=== PATIENT | male | born 1965 | race Caucasian/White ===

== ENCOUNTER 2020-05-18 17:08 | Inpatient (IN) | payer MEDICARE, OTHER ==
[~2020-05-18] VITALS: Ht 177.8 cm; Wt 97.1 kg
[2020-05-18] MEDS ORDERED: ACETAMINOPHEN 325 MG TABLET PO PRN ×2 (18:30→18:45)
[2020-05-18] MEDS ORDERED: DEXTROSE 50%-WATER 25 GM/50 ML SYRINGE IVP PRN ×2 (18:30→18:45)
[2020-05-18] MEDS ORDERED: INSULIN LISPRO 100 UNITS/ML SQ PRN (18:30)
[2020-05-18] MEDS ORDERED: HYPROMELLOSE 0.5% 15 ML OPHTHALMIC SOLUTION OD PRN (18:45)
[2020-05-18 19:19] VITALS: BP 152/90
[2020-05-18] MEDS: INSULIN LISPRO 100 UNITS/ML SQ PRN ×2 (19:44→21:35)
[2020-05-18 20:58] LABS: GLUCOMETER DEV NAME(LOC) 2WR.1C; GLUCOSE,POINT OF CARE 193 MG/DL (70-110)
[2020-05-18 21:00] VITALS: BP 149/80
[2020-05-18] MEDS ORDERED: ERYTHROMYCIN 0.5% 3.5 GM TUBE OPHTHALMIC OINTMENT OD ONE (21:00)
[2020-05-18] MEDS ORDERED: ATORVASTATIN CALCIUM 40 MG TABLET PO SCH (21:00)
[2020-05-18] MEDS ORDERED: DOCUSATE SODIUM 100 MG CAPSULE PO SCH (21:00)
[2020-05-18] MEDS ORDERED: DOCUSATE SODIUM 100 MG/10 ML LIQUID UDCUP PO SCH (21:00)
[2020-05-18] MEDS ORDERED: HEPARIN SODIUM,PORCINE 5,000 UNITS/ML VIAL SQ SCH (21:00)
[2020-05-18] MEDS ORDERED: HYPROMELLOSE 0.5% 15 ML OPHTHALMIC SOLUTION OD SCH (21:00)
[2020-05-18] MEDS: ERYTHROMYCIN 0.5% 3.5 GM TUBE OPHTHALMIC OINTMENT OD SCH (21:24)
[2020-05-18] MEDS: ATORVASTATIN CALCIUM 40 MG TABLET PO SCH (21:24)
[2020-05-18] MEDS: NIFEdipine 30 MG ER TABLET PO SCH (21:24)
[2020-05-18] MEDS: SENNA 187 MG TABLET PO SCH (21:25)
[2020-05-18] MEDS: DOCUSATE SODIUM 100 MG CAPSULE PO SCH (21:25)
[2020-05-18] MEDS: LevETIRAcetam 250 MG TABLET PO SCH (21:25)
[2020-05-18] MEDS: HEPARIN SODIUM,PORCINE 5,000 UNITS/ML VIAL SQ SCH (21:25)
[2020-05-18 23:43] LABS: GLUCOMETER DEV NAME(LOC) 2WR.2B; GLUCOSE,POINT OF CARE 142 MG/DL (70-110)
[2020-05-19] VITALS: BP 160/89
[2020-05-19] MEDS: FAMOTIDINE 20 MG TABLET PO SCH (05:36)
[2020-05-19] MEDS ORDERED: ASPIRIN 81 MG CHEWABLE TABLET PO SCH ×2 (07:30→09:00)
[2020-05-19 08:00] VITALS: BP 148/89
[2020-05-19 08:17] LABS: EOSINOPHILS % (AUTO) 2.1 % (1.0-6.0); HEMATOCRIT 37.8 % (41-53); HEMOGLOBIN 12.6 g/dL (13.5-17.5); LYMPHOCYTES # (AUTO) 1.2 K/uL (1.0-4.8); LYMPHOCYTES % (AUTO) 25.2 % (22.0-44.0); MEAN CORPUSCULAR HEMOGLOBIN 27.5 pg (26.0-34.0); MEAN CORPUSCULAR HGB CONC 33.3 G/dL (31.0-37.0); MEAN CORPUSCULAR VOLUME 83 fL (80-100); MONOCYTES # (AUTO) 0.3 K/uL (0.1-1.0); MONOCYTES % (AUTO) 7.1 % (2.0-9.0); NEUTROPHILS # (AUTO) 3.2 K/uL (1.8-7.7); NEUTROPHILS % (AUTO) 64.6 % (40.0-70.0); PLATELET COUNT (AUTO) 318 K/uL (150-450); RED BLOOD CELL COUNT(AUTO) 4.57 MIL/uL (4.50-5.90); RED CELL DISTRIBUTION WIDTH 14.8 % (11.5-14.5)
[2020-05-19 08:32] LABS: ALANINE AMINOTRANSFERASE 22 U/L (12-78); ALBUMIN 3.7 g/dL (3.4-5.0); ALKALINE PHOSPHATASE 66 U/L (46-116); ANION GAP 8 mmol/L (8-16); ASPARTATE AMINOTRANSFERASE 15 U/L (15-37); BILIRUBIN,TOTAL 0.5 mg/dL (0.1-1.0); CALCIUM, TOTAL 8.9 mg/dL (8.8-10.5); CARBON DIOXIDE 32 mmol/L (22-29); CHLORIDE 104 mmol/L (98-107); CREATININE 1.12 mg/dL (0.60-1.30); GLOMERULAR FILTR. RATE CALC > 60 mL/min (>60); GLUCOSE,RANDOM 153 mg/dL (70-110); POTASSIUM 3.5 mmol/L (3.5-5.1); SODIUM SERUM 144 mmol/L (136-145); TOTAL PROTEIN, SERUM 7.3 g/dL (6.4-8.2); UREA NITROGEN, BLOOD 22 mg/dL (7-18)
[2020-05-19] MEDS: ISOSORBIDE MONONITRATE 60 MG ER TABLET PO SCH (08:50)
[2020-05-19] MEDS: ERYTHROMYCIN 0.5% 3.5 GM TUBE OPHTHALMIC OINTMENT OD SCH ×4 (08:50→20:37)
[2020-05-19] MEDS: LevETIRAcetam 250 MG TABLET PO SCH ×2 (08:51→20:36)
[2020-05-19] MEDS: NIFEdipine 30 MG ER TABLET PO SCH ×3 (08:51→20:36)
[2020-05-19] MEDS: POTASSIUM CHLORIDE 20 MEQ ER TABLET PO SCH (08:51)
[2020-05-19] MEDS: LISINOPRIL 20 MG TABLET PO SCH (08:51)
[2020-05-19] MEDS: HEPARIN SODIUM,PORCINE 5,000 UNITS/ML VIAL SQ SCH ×2 (08:51→20:36)
[2020-05-19] MEDS: DOCUSATE SODIUM 100 MG CAPSULE PO SCH ×2 (08:54→20:37)
[2020-05-19] MEDS ORDERED: ISOSORBIDE MONONITRATE 60 MG ER TABLET PO SCH (09:00)
[2020-05-19] MEDS ORDERED: FAMOTIDINE 20 MG TABLET PO SCH (09:00)
[2020-05-19] MEDS: INSULIN LISPRO 100 UNITS/ML SQ PRN ×4 (09:21→20:38)
[2020-05-19 12:21] LABS: GLUCOMETER DEV NAME(LOC) 2WR.2B; GLUCOSE,POINT OF CARE 160 MG/DL (70-110)
[2020-05-19 15:16] LABS: GLUCOMETER DEV NAME(LOC) 2WR.1C; GLUCOSE,POINT OF CARE 151 MG/DL (70-110)
[2020-05-19 16:04] VITALS: BP 139/97
[2020-05-19 18:52] LABS: GLUCOMETER DEV NAME(LOC) 2WR.2B; GLUCOSE,POINT OF CARE 172 MG/DL (70-110)
[2020-05-19 19:33] LABS: APPEARANCE,URINE CLEAR (CLEAR); BILIRUBIN,URINE NEGATIVE (NEGATIVE); GLUCOSE, URINE (UA) NEGATIVE (NEGATIVE); KETONES,URINE NEGATIVE (NEGATIVE); LEUKOCYTE ESTERASE ,URINE NEGATIVE (NEGATIVE); NITRATE,URINE NEGATIVE (NEGATIVE); OCCULT BLOOD,URINE NEGATIVE (NEGATIVE); PH,URINE 6.5 (5.0-8.0); PROTEIN,URINE SEE CONFIRM (NEGATIVE)
[2020-05-19 20:05] LABS: SULFOSALICYLIC ACID,URINE 3+ (Negative)
[2020-05-19 20:07] LABS: BACTERIA,URINE None Seen /HPF (None Seen); RBC,URINE None Seen /HPF (0-2); WBC,URINE 0-2 /HPF (0-5)
[2020-05-19 20:08] LABS: SQUAMOUS EPITHELIAL CELL,UR Rare /LPF (None Seen)
[2020-05-19 20:28] VITALS: BP 131/89
[2020-05-19] MEDS: ATORVASTATIN CALCIUM 40 MG TABLET PO SCH (20:36)
[2020-05-19] MEDS: TAMSULOSIN HCL 0.4 MG CAPSULE PO SCH (20:36)
[2020-05-19] MEDS: SENNA 187 MG TABLET PO SCH (20:36)
[2020-05-19 22:23] LABS: GLUCOMETER DEV NAME(LOC) 2WR.2B; GLUCOSE,POINT OF CARE 170 MG/DL (70-110)
[2020-05-20] MEDS: MELATONIN 5 MG TABLET PO PRN ×2 (00:23→20:28)
[2020-05-20 00:56] VITALS: BP 127/82
[2020-05-20] MEDS: FAMOTIDINE 20 MG TABLET PO SCH (06:07)
[2020-05-20 07:00] VITALS: BP 159/91
[2020-05-20] MEDS: ERYTHROMYCIN 0.5% 3.5 GM TUBE OPHTHALMIC OINTMENT OD SCH ×4 (09:00→20:34)
[2020-05-20] MEDS ORDERED: MULTIVITAMINS WITH MINERALS, THERAPEUTIC TABLET PO SCH (09:00)
[2020-05-20] MEDS: DOCUSATE SODIUM 250 MG CAPSULE PO SCH ×2 (10:25→20:28)
[2020-05-20] MEDS: ISOSORBIDE MONONITRATE 60 MG ER TABLET PO SCH (10:25)
[2020-05-20] MEDS: LISINOPRIL 20 MG TABLET PO SCH (10:26)
[2020-05-20] MEDS: MULTIVITAMINS WITH MINERALS, THERAPEUTIC TABLET PO SCH (10:26)
[2020-05-20] MEDS: ASPIRIN 81 MG CHEWABLE TABLET PO SCH (10:26)
[2020-05-20] MEDS: LevETIRAcetam 250 MG TABLET PO SCH ×2 (10:26→20:28)
[2020-05-20] MEDS: HYPROMELLOSE 0.5% 15 ML OPHTHALMIC SOLUTION OD PRN ×2 (10:27→16:16)
[2020-05-20] MEDS: POTASSIUM CHLORIDE 20 MEQ ER TABLET PO SCH (10:27)
[2020-05-20] MEDS: NIFEdipine 30 MG ER TABLET PO SCH ×3 (10:27→20:28)
[2020-05-20 12:31] LABS: GLUCOMETER DEV NAME(LOC) 2WR.1C; GLUCOSE,POINT OF CARE 293 MG/DL (70-110)
[2020-05-20 12:31] LABS: GLUCOMETER DEV NAME(LOC) 2WR.1C; GLUCOSE,POINT OF CARE 134 MG/DL (70-110)
[2020-05-20] MEDS: INSULIN LISPRO 100 UNITS/ML SQ PRN ×2 (13:58→20:29)
[2020-05-20 15:50] VITALS: BP 123/77
[2020-05-20] MEDS: HEPARIN SODIUM,PORCINE 5,000 UNITS/ML VIAL SQ SCH ×2 (16:17→22:54)
[2020-05-20] MEDS: MetFORMIN HCL 500 MG TABLET PO SCH (17:19)
[2020-05-20 19:28] LABS: GLUCOMETER DEV NAME(LOC) 2WR.1C; GLUCOSE,POINT OF CARE 127 MG/DL (70-110)
[2020-05-20 20:25] VITALS: BP 123/81
[2020-05-20] MEDS: SENNA 187 MG TABLET PO SCH (20:28)
[2020-05-20] MEDS: ATORVASTATIN CALCIUM 40 MG TABLET PO SCH (20:28)
[2020-05-20] MEDS: TAMSULOSIN HCL 0.4 MG CAPSULE PO SCH (20:28)
[2020-05-20 21:36] LABS: GLUCOMETER DEV NAME(LOC) 2WR.1C; GLUCOSE,POINT OF CARE 186 MG/DL (70-110)
[2020-05-21 01:00] VITALS: BP 141/79
[2020-05-21] MEDS: FAMOTIDINE 20 MG TABLET PO SCH (05:55)
[2020-05-21 06:15] LABS: GLUCOMETER DEV NAME(LOC) 2WR.1C; GLUCOSE,POINT OF CARE 137 MG/DL (70-110)
[2020-05-21 08:15] VITALS: BP 187/112
[2020-05-21 09:18] VITALS: BP 126/75
[2020-05-21] MEDS: MetFORMIN HCL 500 MG TABLET PO SCH ×2 (09:18→17:30)
[2020-05-21] MEDS: DOCUSATE SODIUM 250 MG CAPSULE PO SCH ×2 (09:19→20:32)
[2020-05-21] MEDS: POTASSIUM CHLORIDE 20 MEQ ER TABLET PO SCH (09:19)
[2020-05-21] MEDS: MULTIVITAMINS WITH MINERALS, THERAPEUTIC TABLET PO SCH (09:19)
[2020-05-21] MEDS: ERYTHROMYCIN 0.5% 3.5 GM TUBE OPHTHALMIC OINTMENT OD SCH ×4 (09:19→20:32)
[2020-05-21] MEDS: ASPIRIN 81 MG CHEWABLE TABLET PO SCH (09:19)
[2020-05-21] MEDS: LISINOPRIL 20 MG TABLET PO SCH (09:19)
[2020-05-21] MEDS: HEPARIN SODIUM,PORCINE 5,000 UNITS/ML VIAL SQ SCH ×3 (09:19→22:50)
[2020-05-21] MEDS: ISOSORBIDE MONONITRATE 60 MG ER TABLET PO SCH (09:19)
[2020-05-21] MEDS: LevETIRAcetam 250 MG TABLET PO SCH ×2 (09:19→20:33)
[2020-05-21] MEDS: NIFEdipine 30 MG ER TABLET PO SCH ×3 (09:19→20:32)
[2020-05-21] MEDS: INSULIN LISPRO 100 UNITS/ML SQ PRN ×3 (12:30→20:49)
[2020-05-21 13:06] LABS: GLUCOMETER DEV NAME(LOC) 2WR.1C; GLUCOSE,POINT OF CARE 194 MG/DL (70-110)
[2020-05-21 16:23] VITALS: BP 120/78
[2020-05-21] MEDS: MELATONIN 5 MG TABLET PO PRN (20:32)
[2020-05-21] MEDS: SENNA 187 MG TABLET PO SCH (20:32)
[2020-05-21] MEDS: ATORVASTATIN CALCIUM 40 MG TABLET PO SCH (20:33)
[2020-05-21] MEDS: TAMSULOSIN HCL 0.4 MG CAPSULE PO SCH (20:33)
[2020-05-21 23:02] LABS: GLUCOMETER DEV NAME(LOC) 2WR.2B; GLUCOSE,POINT OF CARE 154 MG/DL (70-110)
[2020-05-22] VITALS: BP 146/76
[2020-05-22] MEDS: FAMOTIDINE 20 MG TABLET PO SCH (05:56)
[2020-05-22 06:32] LABS: GLUCOMETER DEV NAME(LOC) 2WR.1C; GLUCOSE,POINT OF CARE 172 MG/DL (70-110)
[2020-05-22 08:03] VITALS: BP_SYST 134; BP_SYST 161; BP_DIAS 83; BP_DIAS 93
[2020-05-22] MEDS: ISOSORBIDE MONONITRATE 60 MG ER TABLET PO SCH (08:04)
[2020-05-22] MEDS: DOCUSATE SODIUM 250 MG CAPSULE PO SCH ×2 (08:04→20:46)
[2020-05-22] MEDS: POTASSIUM CHLORIDE 20 MEQ ER TABLET PO SCH (08:04)
[2020-05-22] MEDS: HEPARIN SODIUM,PORCINE 5,000 UNITS/ML VIAL SQ SCH ×2 (08:04→15:45)
[2020-05-22] MEDS: NIFEdipine 30 MG ER TABLET PO SCH ×3 (08:04→20:46)
[2020-05-22] MEDS: LISINOPRIL 20 MG TABLET PO SCH (08:05)
[2020-05-22] MEDS: MULTIVITAMINS WITH MINERALS, THERAPEUTIC TABLET PO SCH (08:05)
[2020-05-22] MEDS: MetFORMIN HCL 500 MG TABLET PO SCH ×2 (08:05→17:32)
[2020-05-22] MEDS: ASPIRIN 81 MG CHEWABLE TABLET PO SCH (08:05)
[2020-05-22] MEDS: LevETIRAcetam 250 MG TABLET PO SCH ×2 (08:05→20:46)
[2020-05-22] MEDS: INSULIN LISPRO 100 UNITS/ML SQ PRN ×4 (08:10→21:03)
[2020-05-22] MEDS: ERYTHROMYCIN 0.5% 3.5 GM TUBE OPHTHALMIC OINTMENT OD SCH ×4 (09:22→20:46)
[2020-05-22 15:16] LABS: GLUCOMETER DEV NAME(LOC) 2WR.1C; GLUCOSE,POINT OF CARE 188 MG/DL (70-110)
[2020-05-22 16:09] VITALS: BP 136/91
[2020-05-22 18:01] LABS: GLUCOMETER DEV NAME(LOC) 2WR.1C; GLUCOSE,POINT OF CARE 145 MG/DL (70-110)
[2020-05-22] MEDS: TAMSULOSIN HCL 0.4 MG CAPSULE PO SCH (20:46)
[2020-05-22] MEDS: ATORVASTATIN CALCIUM 40 MG TABLET PO SCH (20:46)
[2020-05-22] MEDS: SENNA 187 MG TABLET PO SCH (20:46)
[2020-05-22] MEDS: MELATONIN 5 MG TABLET PO PRN (20:46)
[2020-05-22 21:26] LABS: GLUCOMETER DEV NAME(LOC) 2WR.2B; GLUCOSE,POINT OF CARE 170 MG/DL (70-110)
[2020-05-23 00:10] VITALS: BP_SYST 107; BP_SYST 153; BP_DIAS 69; BP_DIAS 94
[2020-05-23] MEDS: HEPARIN SODIUM,PORCINE 5,000 UNITS/ML VIAL SQ SCH ×4 (01:13→20:14)
[2020-05-23] MEDS: FAMOTIDINE 20 MG TABLET PO SCH (06:01)
[2020-05-23 06:14] LABS: GLUCOMETER DEV NAME(LOC) 2WR.1C; GLUCOSE,POINT OF CARE 147 MG/DL (70-110)
[2020-05-23] MEDS: DOCUSATE SODIUM 250 MG CAPSULE PO SCH ×2 (07:28→20:12)
[2020-05-23] MEDS: MetFORMIN HCL 500 MG TABLET PO SCH (07:28)
[2020-05-23] MEDS: ASPIRIN 81 MG CHEWABLE TABLET PO SCH (07:28)
[2020-05-23] MEDS: NIFEdipine 30 MG ER TABLET PO SCH ×3 (07:29→20:13)
[2020-05-23] MEDS: LevETIRAcetam 250 MG TABLET PO SCH ×2 (07:29→20:13)
[2020-05-23] MEDS: MULTIVITAMINS WITH MINERALS, THERAPEUTIC TABLET PO SCH (07:29)
[2020-05-23] MEDS: ISOSORBIDE MONONITRATE 60 MG ER TABLET PO SCH (07:29)
[2020-05-23] MEDS: LISINOPRIL 20 MG TABLET PO SCH (07:29)
[2020-05-23] MEDS: POTASSIUM CHLORIDE 20 MEQ ER TABLET PO SCH (07:29)
[2020-05-23] MEDS: ERYTHROMYCIN 0.5% 3.5 GM TUBE OPHTHALMIC OINTMENT OD SCH ×4 (07:33→20:12)
[2020-05-23] MEDS: INSULIN LISPRO 100 UNITS/ML SQ PRN ×3 (07:37→20:18)
[2020-05-23 08:00] VITALS: BP 154/93
[2020-05-23 14:00] LABS: GLUCOMETER DEV NAME(LOC) 2WR.2B; GLUCOSE,POINT OF CARE 236 MG/DL (70-110)
[2020-05-23 15:21] VITALS: BP 147/85
[2020-05-23] MEDS: HYPROMELLOSE 0.5% 15 ML OPHTHALMIC SOLUTION OD PRN (15:23)
[2020-05-23] MEDS: MetFORMIN HCL 850 MG TABLET PO SCH (17:45)
[2020-05-23 18:17] LABS: GLUCOMETER DEV NAME(LOC) 2WR.1C; GLUCOSE,POINT OF CARE 130 MG/DL (70-110)
[2020-05-23 20:07] VITALS: BP 127/96
[2020-05-23] MEDS: SENNA 187 MG TABLET PO SCH (20:12)
[2020-05-23] MEDS: TAMSULOSIN HCL 0.4 MG CAPSULE PO SCH (20:12)
[2020-05-23] MEDS: MELATONIN 5 MG TABLET PO PRN (20:12)
[2020-05-23] MEDS: ATORVASTATIN CALCIUM 40 MG TABLET PO SCH (20:13)
[2020-05-23 21:48] LABS: GLUCOMETER DEV NAME(LOC) 2WR.1C; GLUCOSE,POINT OF CARE 176 MG/DL (70-110)
[2020-05-24 00:02] VITALS: BP 123/74
[2020-05-24] MEDS: FAMOTIDINE 20 MG TABLET PO SCH (06:02)
[2020-05-24 06:16] LABS: GLUCOMETER DEV NAME(LOC) 2WR.2B; GLUCOSE,POINT OF CARE 139 MG/DL (70-110)
[2020-05-24 07:02] VITALS: BP 161/91
[2020-05-24] MEDS: MetFORMIN HCL 850 MG TABLET PO SCH ×2 (08:12→17:03)
[2020-05-24] MEDS: ASPIRIN 81 MG CHEWABLE TABLET PO SCH (08:12)
[2020-05-24] MEDS: ERYTHROMYCIN 0.5% 3.5 GM TUBE OPHTHALMIC OINTMENT OD SCH ×4 (08:12→20:15)
[2020-05-24] MEDS: LevETIRAcetam 250 MG TABLET PO SCH ×2 (08:13→20:16)
[2020-05-24] MEDS: POTASSIUM CHLORIDE 20 MEQ ER TABLET PO SCH (08:13)
[2020-05-24] MEDS: MULTIVITAMINS WITH MINERALS, THERAPEUTIC TABLET PO SCH (08:13)
[2020-05-24] MEDS: NIFEdipine 30 MG ER TABLET PO SCH ×3 (08:13→20:15)
[2020-05-24] MEDS: ISOSORBIDE MONONITRATE 60 MG ER TABLET PO SCH (08:13)
[2020-05-24] MEDS: DOCUSATE SODIUM 250 MG CAPSULE PO SCH ×2 (08:13→20:15)
[2020-05-24] MEDS: LISINOPRIL 20 MG TABLET PO SCH (08:13)
[2020-05-24] MEDS: HEPARIN SODIUM,PORCINE 5,000 UNITS/ML VIAL SQ SCH ×3 (08:14→20:16)
[2020-05-24 09:08] VITALS: BP 148/86
[2020-05-24] MEDS: AmLODIPine BESYLATE 5 MG TABLET PO SCH (12:30)
[2020-05-24] MEDS: INSULIN LISPRO 100 UNITS/ML SQ PRN ×2 (12:33→20:37)
[2020-05-24 14:14] LABS: GLUCOMETER DEV NAME(LOC) 2WR.2B; GLUCOSE,POINT OF CARE 220 MG/DL (70-110)
[2020-05-24 15:49] VITALS: BP 126/73
[2020-05-24] MEDS: HYPROMELLOSE 0.5% 15 ML OPHTHALMIC SOLUTION OD PRN (15:53)
[2020-05-24 18:35] LABS: GLUCOMETER DEV NAME(LOC) 2WR.2B; GLUCOSE,POINT OF CARE 126 MG/DL (70-110)
[2020-05-24 20:09] VITALS: BP 127/76
[2020-05-24] MEDS: MELATONIN 5 MG TABLET PO PRN (20:15)
[2020-05-24] MEDS: TAMSULOSIN HCL 0.4 MG CAPSULE PO SCH (20:15)
[2020-05-24] MEDS: ATORVASTATIN CALCIUM 40 MG TABLET PO SCH (20:16)
[2020-05-24] MEDS: SENNA 187 MG TABLET PO SCH (20:16)
[2020-05-24 23:08] LABS: GLUCOMETER DEV NAME(LOC) 2WR.1C; GLUCOSE,POINT OF CARE 145 MG/DL (70-110)
[2020-05-25 00:03] VITALS: BP 127/75
[2020-05-25] MEDS: FAMOTIDINE 20 MG TABLET PO SCH (05:54)
[2020-05-25 06:14] LABS: GLUCOMETER DEV NAME(LOC) 2WR.1C; GLUCOSE,POINT OF CARE 144 MG/DL (70-110)
[2020-05-25] MEDS: AmLODIPine BESYLATE 5 MG TABLET PO SCH (07:58)
[2020-05-25] MEDS: NIFEdipine 30 MG ER TABLET PO SCH ×3 (07:58→20:18)
[2020-05-25] MEDS: DOCUSATE SODIUM 250 MG CAPSULE PO SCH ×2 (07:58→20:18)
[2020-05-25] MEDS: MULTIVITAMINS WITH MINERALS, THERAPEUTIC TABLET PO SCH (07:58)
[2020-05-25] MEDS: MetFORMIN HCL 850 MG TABLET PO SCH (07:58)
[2020-05-25] MEDS: LevETIRAcetam 250 MG TABLET PO SCH ×2 (07:58→20:19)
[2020-05-25] MEDS: ASPIRIN 81 MG CHEWABLE TABLET PO SCH (07:58)
[2020-05-25] MEDS: ERYTHROMYCIN 0.5% 3.5 GM TUBE OPHTHALMIC OINTMENT OD SCH ×4 (07:59→20:20)
[2020-05-25] MEDS: ISOSORBIDE MONONITRATE 60 MG ER TABLET PO SCH (07:59)
[2020-05-25] MEDS: POTASSIUM CHLORIDE 20 MEQ ER TABLET PO SCH (07:59)
[2020-05-25] MEDS: LISINOPRIL 20 MG TABLET PO SCH (07:59)
[2020-05-25] MEDS: HEPARIN SODIUM,PORCINE 5,000 UNITS/ML VIAL SQ SCH ×3 (08:00→20:19)
[2020-05-25 08:01] VITALS: BP 155/85
[2020-05-25] MEDS: INSULIN LISPRO 100 UNITS/ML SQ PRN ×2 (08:02→20:50)
[2020-05-25 14:30] VITALS: BP 163/94
[2020-05-25 14:37] LABS: GLUCOMETER DEV NAME(LOC) 2WR.2B; GLUCOSE,POINT OF CARE 122 MG/DL (70-110)
[2020-05-25] MEDS: MetFORMIN HCL 500 MG TABLET PO SCH (17:34)
[2020-05-25 19:37] LABS: GLUCOMETER DEV NAME(LOC) 2WR.2B; GLUCOSE,POINT OF CARE 112 MG/DL (70-110)
[2020-05-25 20:15] VITALS: BP 155/93
[2020-05-25] MEDS: ATORVASTATIN CALCIUM 40 MG TABLET PO SCH (20:18)
[2020-05-25] MEDS: TAMSULOSIN HCL 0.4 MG CAPSULE PO SCH (20:18)
[2020-05-25] MEDS: SENNA 187 MG TABLET PO SCH (20:19)
[2020-05-25 20:25] LABS: GLUCOMETER DEV NAME(LOC) 2WR.2B; GLUCOSE,POINT OF CARE 150 MG/DL (70-110)
[2020-05-25] MEDS: MELATONIN 5 MG TABLET PO PRN (22:51)
[2020-05-26] VITALS: BP 148/95
[2020-05-26 06:21] LABS: GLUCOMETER DEV NAME(LOC) 2WR.1C; GLUCOSE,POINT OF CARE 140 MG/DL (70-110)
[2020-05-26 06:53] LABS: BASOPHILS % (AUTO) 0.6 % (0.0-2.0); EOSINOPHILS % (AUTO) 1.5 % (1.0-6.0); HEMATOCRIT 35.3 % (41-53); HEMOGLOBIN 11.8 g/dL (13.5-17.5); LYMPHOCYTES # (AUTO) 1.4 K/uL (1.0-4.8); LYMPHOCYTES % (AUTO) 15.5 % (22.0-44.0); MEAN CORPUSCULAR HGB CONC 33.4 G/dL (31.0-37.0); MEAN CORPUSCULAR VOLUME 84 fL (80-100); MONOCYTES # (AUTO) 0.5 K/uL (0.1-1.0); MONOCYTES % (AUTO) 5.6 % (2.0-9.0); NEUTROPHILS # (AUTO) 6.8 K/uL (1.8-7.7); NEUTROPHILS % (AUTO) 76.8 % (40.0-70.0); PLATELET COUNT (AUTO) 267 K/uL (150-450); RED BLOOD CELL COUNT(AUTO) 4.22 MIL/uL (4.50-5.90); RED CELL DISTRIBUTION WIDTH 15.1 % (11.5-14.5)
[2020-05-26] MEDS: FAMOTIDINE 20 MG TABLET PO SCH (07:03)
[2020-05-26 07:19] LABS: ANION GAP 7 mmol/L (8-16); CALCIUM, TOTAL 8.9 mg/dL (8.8-10.5); CARBON DIOXIDE 29 mmol/L (22-29); CHLORIDE 107 mmol/L (98-107); CREATININE 1.03 mg/dL (0.60-1.30); GLOMERULAR FILTR. RATE CALC > 60 mL/min (>60); GLUCOSE,RANDOM 143 mg/dL (70-110); SODIUM SERUM 143 mmol/L (136-145); UREA NITROGEN, BLOOD 35 mg/dL (7-18)
[2020-05-26] MEDS: ERYTHROMYCIN 0.5% 3.5 GM TUBE OPHTHALMIC OINTMENT OD SCH ×4 (07:51→20:48)
[2020-05-26] MEDS: ASPIRIN 81 MG CHEWABLE TABLET PO SCH (07:51)
[2020-05-26] MEDS: MetFORMIN HCL 500 MG TABLET PO SCH ×2 (07:51→17:32)
[2020-05-26] MEDS: POTASSIUM CHLORIDE 20 MEQ ER TABLET PO SCH (07:52)
[2020-05-26] MEDS: MULTIVITAMINS WITH MINERALS, THERAPEUTIC TABLET PO SCH (07:52)
[2020-05-26] MEDS: ISOSORBIDE MONONITRATE 60 MG ER TABLET PO SCH (07:52)
[2020-05-26] MEDS: NIFEdipine 30 MG ER TABLET PO SCH ×3 (07:52→20:48)
[2020-05-26] MEDS: AmLODIPine BESYLATE 5 MG TABLET PO SCH (07:52)
[2020-05-26] MEDS: LISINOPRIL 20 MG TABLET PO SCH (07:52)
[2020-05-26] MEDS: HEPARIN SODIUM,PORCINE 5,000 UNITS/ML VIAL SQ SCH ×3 (07:52→20:48)
[2020-05-26] MEDS: LevETIRAcetam 250 MG TABLET PO SCH ×2 (07:52→20:48)
[2020-05-26 08:00] VITALS: BP 138/90
[2020-05-26] MEDS: DOCUSATE SODIUM 250 MG CAPSULE PO SCH ×2 (08:04→20:50)
[2020-05-26] MEDS: INSULIN LISPRO 100 UNITS/ML SQ PRN (12:22)
[2020-05-26 12:45] LABS: GLUCOMETER DEV NAME(LOC) 2WR.1C; GLUCOSE,POINT OF CARE 162 MG/DL (70-110)
[2020-05-26 15:50] VITALS: BP 115/93
[2020-05-26 18:06] LABS: GLUCOMETER DEV NAME(LOC) 2WR.1C; GLUCOSE,POINT OF CARE 115 MG/DL (70-110)
[2020-05-26] MEDS: ATORVASTATIN CALCIUM 40 MG TABLET PO SCH (20:48)
[2020-05-26] MEDS: TAMSULOSIN HCL 0.4 MG CAPSULE PO SCH (20:48)
[2020-05-26] MEDS: SENNA 187 MG TABLET PO SCH (20:50)
[2020-05-26 21:54] LABS: GLUCOMETER DEV NAME(LOC) 2WR.2B; GLUCOSE,POINT OF CARE 140 MG/DL (70-110)
[2020-05-26] MEDS: MELATONIN 5 MG TABLET PO PRN (23:05)
[2020-05-26 23:16] VITALS: BP 124/76
[2020-05-27 06:02] LABS: GLUCOMETER DEV NAME(LOC) 2WR.1C; GLUCOSE,POINT OF CARE 124 MG/DL (70-110)
[2020-05-27] MEDS: FAMOTIDINE 20 MG TABLET PO SCH (06:02)
[2020-05-27] MEDS: ERYTHROMYCIN 0.5% 3.5 GM TUBE OPHTHALMIC OINTMENT OD SCH ×4 (08:42→21:06)
[2020-05-27] MEDS: MetFORMIN HCL 500 MG TABLET PO SCH ×2 (08:42→17:42)
[2020-05-27] MEDS: ASPIRIN 81 MG CHEWABLE TABLET PO SCH (08:43)
[2020-05-27] MEDS: ISOSORBIDE MONONITRATE 60 MG ER TABLET PO SCH (08:43)
[2020-05-27] MEDS: DOCUSATE SODIUM 250 MG CAPSULE PO SCH ×2 (08:43→21:06)
[2020-05-27] MEDS: LevETIRAcetam 250 MG TABLET PO SCH ×2 (08:44→21:05)
[2020-05-27] MEDS: POTASSIUM CHLORIDE 20 MEQ ER TABLET PO SCH (08:44)
[2020-05-27] MEDS: NIFEdipine 30 MG ER TABLET PO SCH ×3 (08:44→21:05)
[2020-05-27] MEDS: AmLODIPine BESYLATE 5 MG TABLET PO SCH (08:44)
[2020-05-27] MEDS: MULTIVITAMINS WITH MINERALS, THERAPEUTIC TABLET PO SCH (08:45)
[2020-05-27] MEDS: HEPARIN SODIUM,PORCINE 5,000 UNITS/ML VIAL SQ SCH ×3 (08:46→21:06)
[2020-05-27] MEDS: LISINOPRIL 20 MG TABLET PO SCH (08:46)
[2020-05-27] MEDS: INSULIN LISPRO 100 UNITS/ML SQ PRN ×2 (12:00→21:29)
[2020-05-27 13:49] LABS: GLUCOMETER DEV NAME(LOC) 2WR.2B; GLUCOSE,POINT OF CARE 234 MG/DL (70-110)
[2020-05-27 16:09] VITALS: BP 122/76
[2020-05-27 16:42] LABS: APPEARANCE,URINE CLEAR (CLEAR); BILIRUBIN,URINE NEGATIVE (NEGATIVE); GLUCOSE, URINE (UA) NEGATIVE (NEGATIVE); KETONES,URINE NEGATIVE (NEGATIVE); LEUKOCYTE ESTERASE ,URINE NEGATIVE (NEGATIVE); NITRATE,URINE NEGATIVE (NEGATIVE); OCCULT BLOOD,URINE NEGATIVE (NEGATIVE); PH,URINE 6.5 (5.0-8.0); PROTEIN,URINE SEE CONFIRM (NEGATIVE)
[2020-05-27 16:45] LABS: BACTERIA,URINE Rare /HPF (None Seen); RBC,URINE 0-2 /HPF (0-2); SQUAMOUS EPITHELIAL CELL,UR Rare /LPF (None Seen); SULFOSALICYLIC ACID,URINE 2+ (Negative); WBC,URINE 0-2 /HPF (0-5)
[2020-05-27 18:25] LABS: GLUCOMETER DEV NAME(LOC) 2WR.1C; GLUCOSE,POINT OF CARE 110 MG/DL (70-110)
[2020-05-27] MEDS: MELATONIN 5 MG TABLET PO PRN (21:06)
[2020-05-27] MEDS: SENNA 187 MG TABLET PO SCH (21:06)
[2020-05-27] MEDS: TAMSULOSIN HCL 0.4 MG CAPSULE PO SCH (21:06)
[2020-05-27] MEDS: ATORVASTATIN CALCIUM 40 MG TABLET PO SCH (21:06)
[2020-05-28 00:13] LABS: GLUCOMETER DEV NAME(LOC) 2WR.2B; GLUCOSE,POINT OF CARE 155 MG/DL (70-110)
[2020-05-28 01:15] VITALS: BP 148/85
[2020-05-28] MEDS: FAMOTIDINE 20 MG TABLET PO SCH (06:01)
[2020-05-28 08:00] VITALS: BP 143/85
[2020-05-28] MEDS: MetFORMIN HCL 500 MG TABLET PO SCH ×2 (08:02→16:52)
[2020-05-28] MEDS: ERYTHROMYCIN 0.5% 3.5 GM TUBE OPHTHALMIC OINTMENT OD SCH ×4 (08:03→20:11)
[2020-05-28] MEDS: ASPIRIN 81 MG CHEWABLE TABLET PO SCH (08:03)
[2020-05-28] MEDS: DOCUSATE SODIUM 250 MG CAPSULE PO SCH ×2 (08:03→20:10)
[2020-05-28] MEDS: POTASSIUM CHLORIDE 20 MEQ ER TABLET PO SCH (08:04)
[2020-05-28] MEDS: AmLODIPine BESYLATE 5 MG TABLET PO SCH (08:04)
[2020-05-28] MEDS: LISINOPRIL 20 MG TABLET PO SCH (08:04)
[2020-05-28] MEDS: MULTIVITAMINS WITH MINERALS, THERAPEUTIC TABLET PO SCH (08:04)
[2020-05-28] MEDS: LevETIRAcetam 250 MG TABLET PO SCH ×2 (08:04→20:10)
[2020-05-28] MEDS: NIFEdipine 30 MG ER TABLET PO SCH ×3 (08:04→20:09)
[2020-05-28] MEDS: ISOSORBIDE MONONITRATE 60 MG ER TABLET PO SCH (08:04)
[2020-05-28] MEDS: HEPARIN SODIUM,PORCINE 5,000 UNITS/ML VIAL SQ SCH ×3 (08:05→20:09)
[2020-05-28] MEDS: INSULIN LISPRO 100 UNITS/ML SQ PRN ×2 (09:24→12:18)
[2020-05-28 13:59] LABS: GLUCOMETER DEV NAME(LOC) 2WR.2B; GLUCOSE,POINT OF CARE 166 MG/DL (70-110)
[2020-05-28 15:33] VITALS: BP 133/68
[2020-05-28 17:44] LABS: GLUCOMETER DEV NAME(LOC) 2WR.1C; GLUCOSE,POINT OF CARE 124 MG/DL (70-110)
[2020-05-28 17:57] LABS: GLUCOMETER DEV NAME(LOC) 2WR.2B; GLUCOSE,POINT OF CARE 93 MG/DL (70-110)
[2020-05-28 20:00] VITALS: BP 124/90
[2020-05-28] MEDS: TAMSULOSIN HCL 0.4 MG CAPSULE PO SCH (20:10)
[2020-05-28] MEDS: ATORVASTATIN CALCIUM 40 MG TABLET PO SCH (20:10)
[2020-05-28] MEDS: SENNA 187 MG TABLET PO SCH (20:10)
[2020-05-28] MEDS: HYPROMELLOSE 0.5% 15 ML OPHTHALMIC SOLUTION OD PRN (20:11)
[2020-05-28 21:07] LABS: GLUCOMETER DEV NAME(LOC) 2WR.2B; GLUCOSE,POINT OF CARE 125 MG/DL (70-110)
[2020-05-28] MEDS: MELATONIN 5 MG TABLET PO PRN (23:14)
[2020-05-29] VITALS: BP 137/83
[2020-05-29] MEDS: FAMOTIDINE 20 MG TABLET PO SCH (05:45)
[2020-05-29 06:17] LABS: GLUCOMETER DEV NAME(LOC) 2WR.2B; GLUCOSE,POINT OF CARE 121 MG/DL (70-110)
[2020-05-29 08:00] VITALS: BP 152/94
[2020-05-29] MEDS: MetFORMIN HCL 500 MG TABLET PO SCH ×2 (08:39→17:52)
[2020-05-29] MEDS: ERYTHROMYCIN 0.5% 3.5 GM TUBE OPHTHALMIC OINTMENT OD SCH ×4 (08:40→20:57)
[2020-05-29] MEDS: AmLODIPine BESYLATE 5 MG TABLET PO SCH (08:40)
[2020-05-29] MEDS: DOCUSATE SODIUM 250 MG CAPSULE PO SCH ×2 (08:40→20:55)
[2020-05-29] MEDS: ISOSORBIDE MONONITRATE 60 MG ER TABLET PO SCH (08:40)
[2020-05-29] MEDS: ASPIRIN 81 MG CHEWABLE TABLET PO SCH (08:40)
[2020-05-29] MEDS: POTASSIUM CHLORIDE 20 MEQ ER TABLET PO SCH (08:40)
[2020-05-29] MEDS: MULTIVITAMINS WITH MINERALS, THERAPEUTIC TABLET PO SCH (08:41)
[2020-05-29] MEDS: NIFEdipine 30 MG ER TABLET PO SCH ×3 (08:41→20:55)
[2020-05-29] MEDS: LISINOPRIL 20 MG TABLET PO SCH (08:41)
[2020-05-29] MEDS: HEPARIN SODIUM,PORCINE 5,000 UNITS/ML VIAL SQ SCH ×3 (08:41→20:55)
[2020-05-29] MEDS: LevETIRAcetam 250 MG TABLET PO SCH ×2 (09:04→20:56)
[2020-05-29] MEDS: INSULIN LISPRO 100 UNITS/ML SQ PRN ×2 (09:23→12:25)
[2020-05-29 09:30] VITALS: BP 128/94
[2020-05-29 10:15] VITALS: BP 138/92
[2020-05-29 12:06] LABS: GLUCOMETER DEV NAME(LOC) 2WR.1C; GLUCOSE,POINT OF CARE 196 MG/DL (70-110)
[2020-05-29 15:35] VITALS: BP 122/82
[2020-05-29 18:55] LABS: GLUCOMETER DEV NAME(LOC) 2WR.1C; GLUCOSE,POINT OF CARE 98 MG/DL (70-110)
[2020-05-29 20:51] VITALS: BP 131/92
[2020-05-29] MEDS: ATORVASTATIN CALCIUM 40 MG TABLET PO SCH (20:54)
[2020-05-29] MEDS: SENNA 187 MG TABLET PO SCH (20:55)
[2020-05-29] MEDS: TAMSULOSIN HCL 0.4 MG CAPSULE PO SCH (20:55)
[2020-05-29 22:09] LABS: GLUCOMETER DEV NAME(LOC) 2WR.2B; GLUCOSE,POINT OF CARE 126 MG/DL (70-110)
[2020-05-30 01:32] VITALS: BP 145/80
[2020-05-30] MEDS: FAMOTIDINE 20 MG TABLET PO SCH (05:43)
[2020-05-30 06:01] LABS: GLUCOMETER DEV NAME(LOC) 2WR.1C; GLUCOSE,POINT OF CARE 143 MG/DL (70-110)
[2020-05-30] MEDS: DOCUSATE SODIUM 250 MG CAPSULE PO SCH ×2 (07:47→21:05)
[2020-05-30] MEDS: AmLODIPine BESYLATE 5 MG TABLET PO SCH (07:47)
[2020-05-30] MEDS: NIFEdipine 30 MG ER TABLET PO SCH ×3 (07:47→21:05)
[2020-05-30] MEDS: MetFORMIN HCL 500 MG TABLET PO SCH ×2 (07:47→17:20)
[2020-05-30] MEDS: LISINOPRIL 20 MG TABLET PO SCH (07:47)
[2020-05-30] MEDS: POTASSIUM CHLORIDE 20 MEQ ER TABLET PO SCH (07:47)
[2020-05-30] MEDS: MULTIVITAMINS WITH MINERALS, THERAPEUTIC TABLET PO SCH (07:47)
[2020-05-30] MEDS: ISOSORBIDE MONONITRATE 60 MG ER TABLET PO SCH (07:47)
[2020-05-30] MEDS: ASPIRIN 81 MG CHEWABLE TABLET PO SCH (07:47)
[2020-05-30] MEDS: ERYTHROMYCIN 0.5% 3.5 GM TUBE OPHTHALMIC OINTMENT OD SCH ×4 (07:48→21:09)
[2020-05-30] MEDS: HEPARIN SODIUM,PORCINE 5,000 UNITS/ML VIAL SQ SCH ×3 (07:48→21:05)
[2020-05-30] MEDS: INSULIN LISPRO 100 UNITS/ML SQ PRN ×2 (07:50→17:18)
[2020-05-30 08:47] VITALS: BP 157/87
[2020-05-30] MEDS: LevETIRAcetam 250 MG TABLET PO SCH ×2 (09:21→21:06)
[2020-05-30 14:55] LABS: GLUCOMETER DEV NAME(LOC) 2WR.2B; GLUCOSE,POINT OF CARE 114 MG/DL (70-110)
[2020-05-30 15:55] VITALS: BP 131/82
[2020-05-30 18:46] LABS: GLUCOMETER DEV NAME(LOC) 2WR.1C; GLUCOSE,POINT OF CARE 148 MG/DL (70-110)
[2020-05-30] MEDS: DOCUSATE SODIUM 283 MG/5 ML MINI-ENEMA PR PRN (19:50)
[2020-05-30 20:57] VITALS: BP 153/86
[2020-05-30] MEDS: SENNA 187 MG TABLET PO SCH (21:05)
[2020-05-30] MEDS: ATORVASTATIN CALCIUM 40 MG TABLET PO SCH (21:06)
[2020-05-30] MEDS: TAMSULOSIN HCL 0.4 MG CAPSULE PO SCH (21:06)
[2020-05-30] MEDS: INSULIN GLARGINE,HUM.REC.ANLOG 100 UNITS/ML SQ SCH (21:08)
[2020-05-30 22:36] LABS: GLUCOMETER DEV NAME(LOC) 2WR.1C; GLUCOSE,POINT OF CARE 119 MG/DL (70-110)
[2020-05-31 03:30] VITALS: BP 133/88
[2020-05-31 05:58] LABS: GLUCOMETER DEV NAME(LOC) 2WR.1C; GLUCOSE,POINT OF CARE 138 MG/DL (70-110)
[2020-05-31] MEDS: FAMOTIDINE 20 MG TABLET PO SCH (06:06)
[2020-05-31 07:30] VITALS: BP 143/86
[2020-05-31] MEDS: MULTIVITAMINS WITH MINERALS, THERAPEUTIC TABLET PO SCH (08:55)
[2020-05-31] MEDS: DOCUSATE SODIUM 250 MG CAPSULE PO SCH ×2 (08:55→21:20)
[2020-05-31] MEDS: ASPIRIN 81 MG CHEWABLE TABLET PO SCH (08:56)
[2020-05-31] MEDS: LevETIRAcetam 250 MG TABLET PO SCH ×2 (08:57→21:20)
[2020-05-31] MEDS: POTASSIUM CHLORIDE 20 MEQ ER TABLET PO SCH (08:57)
[2020-05-31] MEDS: MetFORMIN HCL 500 MG TABLET PO SCH ×2 (08:57→18:30)
[2020-05-31] MEDS: NIFEdipine 30 MG ER TABLET PO SCH ×3 (08:58→21:25)
[2020-05-31] MEDS: AmLODIPine BESYLATE 5 MG TABLET PO SCH (08:58)
[2020-05-31] MEDS: LISINOPRIL 20 MG TABLET PO SCH (08:58)
[2020-05-31] MEDS: ISOSORBIDE MONONITRATE 60 MG ER TABLET PO SCH (08:58)
[2020-05-31] MEDS: HEPARIN SODIUM,PORCINE 5,000 UNITS/ML VIAL SQ SCH ×3 (08:59→21:20)
[2020-05-31] MEDS: ERYTHROMYCIN 0.5% 3.5 GM TUBE OPHTHALMIC OINTMENT OD SCH ×4 (09:00→21:21)
[2020-05-31] MEDS: INSULIN LISPRO 100 UNITS/ML SQ PRN (12:45)
[2020-05-31 15:33] VITALS: BP 130/76
[2020-05-31 16:25] LABS: GLUCOMETER DEV NAME(LOC) 2WR.1C; GLUCOSE,POINT OF CARE 160 MG/DL (70-110)
[2020-05-31 18:47] LABS: GLUCOMETER DEV NAME(LOC) 2WR.2B; GLUCOSE,POINT OF CARE 95 MG/DL (70-110)
[2020-05-31] MEDS: ATORVASTATIN CALCIUM 40 MG TABLET PO SCH (21:20)
[2020-05-31] MEDS: MELATONIN 5 MG TABLET PO PRN (21:21)
[2020-05-31] MEDS: HYPROMELLOSE 0.5% 15 ML OPHTHALMIC SOLUTION OD PRN (21:24)
[2020-05-31] MEDS: TAMSULOSIN HCL 0.4 MG CAPSULE PO SCH (21:26)
[2020-05-31] MEDS: SENNA 187 MG TABLET PO SCH (21:26)
[2020-05-31 21:28] VITALS: BP 132/86
[2020-05-31 21:31] LABS: GLUCOMETER DEV NAME(LOC) 2WR.2B; GLUCOSE,POINT OF CARE 143 MG/DL (70-110)
[2020-05-31] MEDS: INSULIN GLARGINE,HUM.REC.ANLOG 100 UNITS/ML SQ SCH (21:31)
[2020-05-31 23:18] LABS: GLUCOMETER DEV NAME(LOC) 2WR.2B; GLUCOSE,POINT OF CARE 130 MG/DL (70-110)
[2020-06-01 02:45] VITALS: BP 129/82
[2020-06-01] MEDS: FAMOTIDINE 20 MG TABLET PO SCH (06:19)
[2020-06-01 06:20] LABS: GLUCOMETER DEV NAME(LOC) 2WR.1C; GLUCOSE,POINT OF CARE 119 MG/DL (70-110)
[2020-06-01] MEDS: HEPARIN SODIUM,PORCINE 5,000 UNITS/ML VIAL SQ SCH ×3 (07:53→19:54)
[2020-06-01] MEDS: MetFORMIN HCL 500 MG TABLET PO SCH ×2 (07:54→17:31)
[2020-06-01] MEDS: NIFEdipine 30 MG ER TABLET PO SCH ×3 (07:54→19:56)
[2020-06-01] MEDS: MULTIVITAMINS WITH MINERALS, THERAPEUTIC TABLET PO SCH (07:54)
[2020-06-01] MEDS: DOCUSATE SODIUM 250 MG CAPSULE PO SCH ×2 (07:54→19:54)
[2020-06-01] MEDS: ISOSORBIDE MONONITRATE 60 MG ER TABLET PO SCH (07:54)
[2020-06-01] MEDS: ASPIRIN 81 MG CHEWABLE TABLET PO SCH (07:55)
[2020-06-01] MEDS: POTASSIUM CHLORIDE 20 MEQ ER TABLET PO SCH (07:55)
[2020-06-01] MEDS: AmLODIPine BESYLATE 5 MG TABLET PO SCH (07:55)
[2020-06-01] MEDS: LevETIRAcetam 250 MG TABLET PO SCH ×2 (07:55→19:54)
[2020-06-01] MEDS: LISINOPRIL 20 MG TABLET PO SCH (07:56)
[2020-06-01] MEDS: ERYTHROMYCIN 0.5% 3.5 GM TUBE OPHTHALMIC OINTMENT OD SCH ×4 (08:00→20:02)
[2020-06-01 08:11] LABS: BASOPHILS % (AUTO) 0.7 % (0.0-2.0); EOSINOPHILS % (AUTO) 1.8 % (1.0-6.0); HEMATOCRIT 36.1 % (41-53); HEMOGLOBIN 12.3 g/dL (13.5-17.5); LYMPHOCYTES # (AUTO) 1.3 K/uL (1.0-4.8); LYMPHOCYTES % (AUTO) 21.3 % (22.0-44.0); MEAN CORPUSCULAR HEMOGLOBIN 28.4 pg (26.0-34.0); MEAN CORPUSCULAR VOLUME 84 fL (80-100); MONOCYTES # (AUTO) 0.4 K/uL (0.1-1.0); MONOCYTES % (AUTO) 6.6 % (2.0-9.0); NEUTROPHILS # (AUTO) 4.4 K/uL (1.8-7.7); NEUTROPHILS % (AUTO) 69.6 % (40.0-70.0); PLATELET COUNT (AUTO) 249 K/uL (150-450); RED BLOOD CELL COUNT(AUTO) 4.32 MIL/uL (4.50-5.90); RED CELL DISTRIBUTION WIDTH 15.2 % (11.5-14.5)
[2020-06-01 08:25] LABS: CALCIUM, TOTAL 9.6 mg/dL (8.8-10.5); CREATININE 1.25 mg/dL (0.60-1.30); POTASSIUM 4.6 mmol/L (3.5-5.1)
[2020-06-01 08:33] VITALS: BP 123/89
[2020-06-01 12:39] LABS: GLUCOMETER DEV NAME(LOC) 2WR.2B; GLUCOSE,POINT OF CARE 152 MG/DL (70-110)
[2020-06-01] MEDS: INSULIN LISPRO 100 UNITS/ML SQ PRN (12:42)
[2020-06-01 18:19] LABS: GLUCOMETER DEV NAME(LOC) 2WR.2B; GLUCOSE,POINT OF CARE 98 MG/DL (70-110)
[2020-06-01] MEDS: TAMSULOSIN HCL 0.4 MG CAPSULE PO SCH (19:53)
[2020-06-01] MEDS: MELATONIN 5 MG TABLET PO PRN (19:54)
[2020-06-01] MEDS: SENNA 187 MG TABLET PO SCH (19:54)
[2020-06-01] MEDS: ATORVASTATIN CALCIUM 40 MG TABLET PO SCH (19:54)
[2020-06-01 19:56] VITALS: BP 138/76
[2020-06-01] MEDS: INSULIN GLARGINE,HUM.REC.ANLOG 100 UNITS/ML SQ SCH (19:58)
[2020-06-01 21:06] LABS: GLUCOMETER DEV NAME(LOC) 2WR.2B; GLUCOSE,POINT OF CARE 140 MG/DL (70-110)
[2020-06-02] VITALS: BP 131/80
[2020-06-02] MEDS: FAMOTIDINE 20 MG TABLET PO SCH (06:00)
[2020-06-02 06:19] LABS: GLUCOMETER DEV NAME(LOC) 2WR.2B; GLUCOSE,POINT OF CARE 89 MG/DL (70-110)
[2020-06-02 08:05] VITALS: BP 152/80
[2020-06-02] MEDS: ERYTHROMYCIN 0.5% 3.5 GM TUBE OPHTHALMIC OINTMENT OD SCH ×4 (08:18→20:51)
[2020-06-02] MEDS: ASPIRIN 81 MG CHEWABLE TABLET PO SCH (08:19)
[2020-06-02] MEDS: DOCUSATE SODIUM 250 MG CAPSULE PO SCH ×2 (08:19→20:52)
[2020-06-02] MEDS: MetFORMIN HCL 500 MG TABLET PO SCH ×2 (08:19→16:40)
[2020-06-02] MEDS: ISOSORBIDE MONONITRATE 60 MG ER TABLET PO SCH (08:19)
[2020-06-02] MEDS: POTASSIUM CHLORIDE 20 MEQ ER TABLET PO SCH (08:20)
[2020-06-02] MEDS: NIFEdipine 30 MG ER TABLET PO SCH ×3 (08:20→20:52)
[2020-06-02] MEDS: MULTIVITAMINS WITH MINERALS, THERAPEUTIC TABLET PO SCH (08:20)
[2020-06-02] MEDS: LevETIRAcetam 250 MG TABLET PO SCH ×2 (08:20→20:52)
[2020-06-02] MEDS: HEPARIN SODIUM,PORCINE 5,000 UNITS/ML VIAL SQ SCH ×3 (08:20→20:56)
[2020-06-02] MEDS: LISINOPRIL 20 MG TABLET PO SCH (08:20)
[2020-06-02] MEDS: AmLODIPine BESYLATE 5 MG TABLET PO SCH (08:20)
[2020-06-02 09:20] VITALS: BP 113/75
[2020-06-02] MEDS: INSULIN LISPRO 100 UNITS/ML SQ PRN (12:16)
[2020-06-02 12:37] LABS: GLUCOMETER DEV NAME(LOC) 2WR.2B; GLUCOSE,POINT OF CARE 153 MG/DL (70-110)
[2020-06-02] MEDS ORDERED: POLYETHYLENE GLYCOL 3350 17 GM PACKET PO ONE (16:30)
[2020-06-02 16:49] VITALS: BP 126/75
[2020-06-02 18:46] LABS: GLUCOMETER DEV NAME(LOC) 2WR.2B; GLUCOSE,POINT OF CARE 113 MG/DL (70-110)
[2020-06-02 20:40] VITALS: BP 150/79
[2020-06-02] MEDS: SENNA 187 MG TABLET PO SCH (20:51)
[2020-06-02] MEDS: ATORVASTATIN CALCIUM 40 MG TABLET PO SCH (20:51)
[2020-06-02] MEDS: TAMSULOSIN HCL 0.4 MG CAPSULE PO SCH (20:52)
[2020-06-02] MEDS: INSULIN GLARGINE,HUM.REC.ANLOG 100 UNITS/ML SQ SCH (20:59)
[2020-06-02 21:31] LABS: GLUCOMETER DEV NAME(LOC) 2WR.1C; GLUCOSE,POINT OF CARE 134 MG/DL (70-110)
[2020-06-03] MEDS: FAMOTIDINE 20 MG TABLET PO SCH (05:45)
[2020-06-03 05:46] LABS: GLUCOMETER DEV NAME(LOC) 2WR.1C; GLUCOSE,POINT OF CARE 94 MG/DL (70-110)
[2020-06-03 05:53] VITALS: BP 131/75
[2020-06-03 07:17] VITALS: BP 153/86
[2020-06-03] MEDS: LISINOPRIL 20 MG TABLET PO SCH (07:48)
[2020-06-03] MEDS: MetFORMIN HCL 500 MG TABLET PO SCH ×2 (07:49→17:30)
[2020-06-03] MEDS: MULTIVITAMINS WITH MINERALS, THERAPEUTIC TABLET PO SCH (07:50)
[2020-06-03] MEDS: LevETIRAcetam 250 MG TABLET PO SCH ×2 (07:51→20:21)
[2020-06-03] MEDS: ISOSORBIDE MONONITRATE 60 MG ER TABLET PO SCH (07:51)
[2020-06-03] MEDS: NIFEdipine 30 MG ER TABLET PO SCH ×3 (07:53→20:21)
[2020-06-03] MEDS: POLYETHYLENE GLYCOL 3350 17 GM PACKET PO SCH (07:53)
[2020-06-03] MEDS: ASPIRIN 81 MG CHEWABLE TABLET PO SCH (07:53)
[2020-06-03] MEDS: DOCUSATE SODIUM 250 MG CAPSULE PO SCH ×2 (07:53→20:20)
[2020-06-03] MEDS: HEPARIN SODIUM,PORCINE 5,000 UNITS/ML VIAL SQ SCH ×3 (07:54→20:21)
[2020-06-03] MEDS: POTASSIUM CHLORIDE 20 MEQ ER TABLET PO SCH (07:54)
[2020-06-03] MEDS: AmLODIPine BESYLATE 5 MG TABLET PO SCH (07:54)
[2020-06-03] MEDS: ERYTHROMYCIN 0.5% 3.5 GM TUBE OPHTHALMIC OINTMENT OD SCH ×4 (07:55→20:21)
[2020-06-03 12:12] LABS: GLUCOMETER DEV NAME(LOC) 2WR.2B; GLUCOSE,POINT OF CARE 135 MG/DL (70-110)
[2020-06-03 13:00] VITALS: BP 135/70
[2020-06-03 15:51] VITALS: BP 147/79
[2020-06-03] MEDS: DOCUSATE SODIUM 283 MG/5 ML MINI-ENEMA PR PRN (15:56)
[2020-06-03 18:30] LABS: GLUCOMETER DEV NAME(LOC) 2WR.2B; GLUCOSE,POINT OF CARE 117 MG/DL (70-110)
[2020-06-03] MEDS: SENNA 187 MG TABLET PO SCH (20:20)
[2020-06-03] MEDS: MELATONIN 5 MG TABLET PO PRN (20:21)
[2020-06-03] MEDS: HYPROMELLOSE 0.5% 15 ML OPHTHALMIC SOLUTION OD PRN (20:21)
[2020-06-03] MEDS: ATORVASTATIN CALCIUM 40 MG TABLET PO SCH (20:21)
[2020-06-03] MEDS: TAMSULOSIN HCL 0.4 MG CAPSULE PO SCH (20:22)
[2020-06-03 20:23] VITALS: BP 145/82
[2020-06-03] MEDS: INSULIN GLARGINE,HUM.REC.ANLOG 100 UNITS/ML SQ SCH (20:36)
[2020-06-03 21:45] LABS: GLUCOMETER DEV NAME(LOC) 2WR.2B; GLUCOSE,POINT OF CARE 135 MG/DL (70-110)
[2020-06-04] VITALS: BP 137/88
[2020-06-04] MEDS: FAMOTIDINE 20 MG TABLET PO SCH (05:33)
[2020-06-04 05:54] LABS: GLUCOMETER DEV NAME(LOC) 2WR.2B; GLUCOSE,POINT OF CARE 97 MG/DL (70-110)
[2020-06-04 07:30] VITALS: BP 130/80
[2020-06-04] MEDS: LevETIRAcetam 250 MG TABLET PO SCH ×2 (09:10→20:39)
[2020-06-04] MEDS: HEPARIN SODIUM,PORCINE 5,000 UNITS/ML VIAL SQ SCH ×3 (09:10→20:44)
[2020-06-04] MEDS: NIFEdipine 30 MG ER TABLET PO SCH ×3 (09:10→20:39)
[2020-06-04] MEDS: POLYETHYLENE GLYCOL 3350 17 GM PACKET PO SCH (09:10)
[2020-06-04] MEDS: ISOSORBIDE MONONITRATE 60 MG ER TABLET PO SCH (09:11)
[2020-06-04] MEDS: LISINOPRIL 20 MG TABLET PO SCH (09:12)
[2020-06-04] MEDS: ASPIRIN 81 MG CHEWABLE TABLET PO SCH (09:12)
[2020-06-04] MEDS: MetFORMIN HCL 500 MG TABLET PO SCH ×2 (09:12→17:36)
[2020-06-04] MEDS: POTASSIUM CHLORIDE 20 MEQ ER TABLET PO SCH (09:12)
[2020-06-04] MEDS: DOCUSATE SODIUM 250 MG CAPSULE PO SCH ×2 (09:12→20:39)
[2020-06-04] MEDS: MULTIVITAMINS WITH MINERALS, THERAPEUTIC TABLET PO SCH (09:12)
[2020-06-04] MEDS: ERYTHROMYCIN 0.5% 3.5 GM TUBE OPHTHALMIC OINTMENT OD SCH ×4 (09:13→20:38)
[2020-06-04] MEDS: AmLODIPine BESYLATE 5 MG TABLET PO SCH (09:13)
[2020-06-04] MEDS: INSULIN LISPRO 100 UNITS/ML SQ PRN (12:25)
[2020-06-04 15:09] VITALS: BP 123/75
[2020-06-04 16:06] LABS: GLUCOMETER DEV NAME(LOC) 2WR.1C; GLUCOSE,POINT OF CARE 160 MG/DL (70-110)
[2020-06-04 17:31] LABS: COVID AG,FIA SOURCE NASAL SWAB
[2020-06-04 18:34] LABS: GLUCOMETER DEV NAME(LOC) 2WR.1C; GLUCOSE,POINT OF CARE 89 MG/DL (70-110)
[2020-06-04] MEDS: HYPROMELLOSE 0.5% 15 ML OPHTHALMIC SOLUTION OD PRN (20:38)
[2020-06-04] MEDS: MELATONIN 5 MG TABLET PO PRN ×2 (20:39→21:51)
[2020-06-04] MEDS: ATORVASTATIN CALCIUM 40 MG TABLET PO SCH (20:39)
[2020-06-04] MEDS: SENNA 187 MG TABLET PO SCH (20:39)
[2020-06-04] MEDS: TAMSULOSIN HCL 0.4 MG CAPSULE PO SCH (20:39)
[2020-06-04 20:40] VITALS: BP 136/76
[2020-06-04] MEDS: INSULIN GLARGINE,HUM.REC.ANLOG 100 UNITS/ML SQ SCH (20:47)
[2020-06-04] MEDS: DOCUSATE SODIUM 283 MG/5 ML MINI-ENEMA PR PRN (20:58)
[2020-06-04 21:57] LABS: GLUCOMETER DEV NAME(LOC) 2WR.1C; GLUCOSE,POINT OF CARE 121 MG/DL (70-110)
[2020-06-04] MEDS ORDERED: METF-960 PO (22:17)
[2020-06-04] MEDS ORDERED: AMLO-257 PO (22:17)
[2020-06-04] MEDS ORDERED: ATOR40TA28 PO (22:17)
[2020-06-04] MEDS ORDERED: MULT-1239 PO (22:17)
[2020-06-04] MEDS ORDERED: ASPI-1450 PO (22:17)
[2020-06-04] MEDS ORDERED: LEVE250T55 PO (22:17)
[2020-06-04] MEDS ORDERED: FAMO20 PO (22:17)
[2020-06-04] MEDS ORDERED: TAMS-13 PO (22:17)
[2020-06-04] MEDS ORDERED: DOCU-350 PO (22:17)
[2020-06-04] MEDS ORDERED: LISI-894 PO (22:17)
[2020-06-04] MEDS ORDERED: INSLAN SQ (22:17)
[2020-06-04] MEDS ORDERED: NIFE30TA5 PO ×2 (22:17)
[2020-06-04] MEDS ORDERED: ISOS60TA77 PO (22:17)
[2020-06-04] MEDS ORDERED: POTA20TA83 PO (22:17)
[2020-06-04] MEDS ORDERED: INSU100I3 SQ (23:19)
[2020-06-05] VITALS: BP 148/86
[2020-06-05] MEDS: FAMOTIDINE 20 MG TABLET PO SCH ×2 (05:28→05:54)
[2020-06-05 06:33] LABS: GLUCOMETER DEV NAME(LOC) 2WR.2B; GLUCOSE,POINT OF CARE 98 MG/DL (70-110)
[2020-06-05 08:02] VITALS: BP 127/77
[2020-06-05] MEDS: MetFORMIN HCL 500 MG TABLET PO SCH (09:16)
[2020-06-05] MEDS: ERYTHROMYCIN 0.5% 3.5 GM TUBE OPHTHALMIC OINTMENT OD SCH (09:16)
[2020-06-05] MEDS: LevETIRAcetam 250 MG TABLET PO SCH (09:16)
[2020-06-05] MEDS: ASPIRIN 81 MG CHEWABLE TABLET PO SCH (09:17)
[2020-06-05] MEDS: POLYETHYLENE GLYCOL 3350 17 GM PACKET PO SCH (09:17)
[2020-06-05] MEDS: ISOSORBIDE MONONITRATE 60 MG ER TABLET PO SCH (09:17)
[2020-06-05] MEDS: MULTIVITAMINS WITH MINERALS, THERAPEUTIC TABLET PO SCH (09:17)
[2020-06-05] MEDS: POTASSIUM CHLORIDE 20 MEQ ER TABLET PO SCH (09:17)
[2020-06-05] MEDS: DOCUSATE SODIUM 250 MG CAPSULE PO SCH (09:17)
[2020-06-05] MEDS: NIFEdipine 30 MG ER TABLET PO SCH (09:18)
[2020-06-05] MEDS: AmLODIPine BESYLATE 5 MG TABLET PO SCH (09:18)
[2020-06-05] MEDS: HEPARIN SODIUM,PORCINE 5,000 UNITS/ML VIAL SQ SCH (09:18)
[2020-06-05] MEDS: LISINOPRIL 20 MG TABLET PO SCH (09:18)
[2020-06-05 14:38] LABS: GLUCOMETER DEV NAME(LOC) 2WR.1C; GLUCOSE,POINT OF CARE 142 MG/DL (70-110)
== END 2020-06-05 12:20 | disposition home health service (06) | DRG 56 ==
LOC: 2WR 18:15
PROVIDERS: ADMIT Physical Medicine & Rehabilitation; ATTEND Physical Medicine & Rehabilitation
DX: I69.354 Hemiplegia and hemiparesis following cerebral infarction affecting left non-dominant side (principal); I63.9 Cerebral infarction, unspecified; R47.1 Dysarthria and anarthria; E66.01 Morbid (severe) obesity due to excess calories; E11.9 Type 2 diabetes mellitus without complications; D64.9 Anemia, unspecified; I10 Essential (primary) hypertension; K21.9 Gastro-esophageal reflux disease without esophagitis; E78.1 Pure hyperglyceridemia; Z98.890 Other specified postprocedural states; R13.10 Dysphagia, unspecified; G31.84 Mild cognitive impairment of uncertain or unknown etiology; H53.9 Unspecified visual disturbance
CPT/HCPCS: 84153; 87081; 87426; 92507; 92523; 92526; 97110; 97112; 97116; 97163; 97166; 97530; 97535; 99366; A9575; J1644; J1815